=== PATIENT | male | born 1955 ===

== ENCOUNTER 2016-12-19 10:40 | Emergency (ER) | payer MEDICAID, OTHER ==
[2016-12-19 10:48] VITALS: BMI 18.2
[2016-12-19 10:50] VITALS: TEMP 97.8; O2SAT 100
[2016-12-19] MEDS ORDERED: Aspirin 325 mg EC Tablets PO STA (11:12)
[2016-12-19] MEDS ORDERED: Sodium Chloride 0.9% 1,000 ML IV ONE (11:12)
[2016-12-19] MEDS ORDERED: Sodium Chloride 0.9% 1,000 ML ONE (11:16)
--- NOTE | 2016-12-19 11:26 | RAD ---
HISTORY: COMPARISON: No prior. TECHNIQUE: Chest PA and lateral FINDINGS: LINES AND TUBES: None. LUNG AND PLEURA: The lungs are hyperinflated and there is peribronchial thickening with chronic changes in both lungs. No focal consolidation. There is a 4 mm calcified nodule in the left medial lung base. HEART AND MEDIASTINUM: The heart is not enlarged. The hilar and mediastinal contours are within normal limits. SKELETAL STRUCTURES: The bony structures are within normal limits for the patient's age. VISUALIZED UPPER ABDOMEN: Normal. OTHER FINDINGS: None. IMPRESSION: No active pulmonary disease. COPD.
--- NOTE | 2016-12-19 11:26 | C.PDOC ---
History Of Present Illness 61 y/o male with Hx of HTN, Hypercholesterolemia and reported ID in 2012 presents to ED with complaints of palpitations associated with left sided chest pain for 5 days. Patient describes chest pain as "tightness" only having 2 episodes but having frequent palpitations lasting "few seconds". This morning palpitations were more frequent lasting "15 minutes" and took 2 Nitroglycerin pills with no improvement. Patient also reports stabbing chest pain that resolved but palpitations still continued which prompted visit to ED today. Patient did not take other medications and has not been compliant with Aspirin for 1 week. At ED patient has no chest pain or palpitations and denies shortness of breath, dizziness, weakness or any other complaints at this time. Time Seen by Provider: 12/19/16 11:02 Chief Complaint (Nursing): Chest Pain History Per: Patient History/Exam Limitations: no limitations Onset/Duration Of Symptoms: Days Current Symptoms Are (Timing): Still Present Past Medical History Reviewed: Historical Data, Nursing Documentation, Vital Signs Vital Signs: Last Vital Signs Temp 97.8 F 12/19/16 10:45 Pulse 50 L 12/19/16 12:40 Resp 16 12/19/16 12:40 BP 112/69 12/19/16 12:40 Pulse Ox 100 12/19/16 12:41 - Medical History PMH: HTN, Hypercholesterolemia - [facility] Procedures TETANUS TOXOID ADMINIST (12/20/12) Cardiac catherization 2012? Family History: States: No Known Family Hx - Social History Hx Alcohol Use: No Hx Substance Use: No - Immunization History Hx Tetanus Toxoid Vaccination: No Hx Influenza Vaccination: No Hx Pneumococcal Vaccination: No Review Of Systems Constitutional: Negative for: Fever, Chills Cardiovascular: Positive for: Chest Pain, Palpitations Respiratory: Negative for: Shortness of Breath Gastrointestinal: Negative for: Nausea, Vomiting Skin: Negative for: Rash Neurological: Negative for: Weakness, Numbness Physical Exam - Physical Exam Appears: Non-toxic, No Acute Distress Skin: Warm, Dry, No Rash Head: Atraumatic, Normacephalic Eye(s): bilateral: Normal Inspection, EOMI Nose: Normal Oral Mucosa: Moist Neck: Normal ROM Chest: Symmetrical, No Tenderness Cardiovascular: Rhythm Regular (annie), No Murmur Respiratory: Normal Breath Sounds, No Rales, No Rhonchi, No Wheezing Gastrointestinal/Abdominal: Soft, No Tenderness, No Guarding, No Rebound Extremity: Bilateral: Atraumatic, No Pedal Edema, Normal Color And Temperature, Normal ROM Neurological/Psych: Oriented x3, Normal Speech Gait: Steady ED Course And Treatment - Laboratory Results Result Diagrams: 12/19/16 11:28 12/19/16 11:28 ECG: Interpreted By Me, Viewed By Me ECG Rhythm: Sinus Bradycardia Rate From EC (bpm) O2 Sat by Pulse Oximetry: 100 (RA) Pulse Ox Interpretation: Normal Medical Decision Making Medical Decision Making: Impression: Chest palpitations Plan: * EKG * CXR * Labs Progress, Reasses and Dispo: EKG shows SB at 52 bpm CXR shows No active pulmonary disease. COPD. Labs reviewed and unremarkable, no leukocytosis, troponin negative, no electrolyte abnormality, normal lipids Patient re-evaluated and seated comfortably and states he remains unchanged, denies chest pain but states he still feels palpitations intermittently. Given patient's age,history and presentation of atypical chest pain, plan is for observation admission for serial cardiac enzymes and monitoring. I discussed plan for admission with patient and he declined admission. This action is against my medical advice to the patient and the decision was made with informed refusal. The patient was told that admission is necessary and a full explanation of the rationale was given. The risks of leaving were explained to the patient and family at bedside HIPAA compliant, and include, but are not limited to, worsening of known or currently unknown conditions, permanent disability and from undiagnosed or untreated conditions ie ACS. The patient has the capacity to make this informed decision and understands the clinical situation and my explanation of the risks of leaving. The patient voluntarily accepts these risks and a signed AMA form documenting our conversation was obtained.*The patient was given the opportunity to ask questions and reconsider. The patient was encouraged to return to the Emergency Department at any time for further care. Disposition Counseled Patient/Family Regarding: Need For Followup - Disposition Disposition: AGAINST MEDICAL ADVICE Disposition Time: 12:40 Condition: STABLE Additional Instructions: Usted ulloa decidido abandonar el hospital contra un consejo mdico Por favor, siga con nicholas mdico Regrese al servicio de urgencias en cualquier momento si los sntomas persisten o empeoran. Instructions: Against Medical Advice (ED) Forms: [facility] (Czech) Print Language: CZECH - POA Present On Arrival: None - Clinical Impression Clinical Impression: Left against medical advice, Palpitations - Scribe Statement The provider has reviewed the documentation as recorded by the Scribnahid Thomas All medical record entries made by the Ehsanibe were at my direction and personally dictated by me. I have reviewed the chart and agree that the record accurately reflects my personal performance of the history, physical exam, medical decision making, and the department course for this patient. I have also personally directed, reviewed, and agree with the discharge instructions and disposition.
[2016-12-19 11:33] LABS: BASO % 0.9 % (0.0-2.0); EOS # 0.2 K/uL (0.0-0.7); EOS % 4.9 % (0.0-4.0); HEMATOCRIT 38.2 % (35.0-51.0); LYMPH # 0.9 K/uL (1.0-4.3); LYMPH % 23.2 % (20.0-40.0); MEAN CELL VOLUME 96.2 fL (80.0-94.0); MEAN CORPUSCULAR HEMOGLOBIN 32.7 pg (27.0-31.0); MEAN CORPUSCULAR HGB CONC 33.9 g/dL (33.0-37.0); MEAN PLATELET VOLUME 7.2 fL (7.2-11.7); MONO # 0.4 K/uL (0.0-0.8); MONO % 9.9 % (0.0-10.0); RED CELL DISTRIBUTION WIDTH 14.6 % (11.5-14.5)
[2016-12-19 11:41] LABS: INR 1.3
[2016-12-19 11:49] LABS: CHLORIDE 100 mmol/L (98-107)
[2016-12-19 11:50] LABS: POTASSIUM 3.7 mmol/L (3.6-5.2); SODIUM 142 mmol/L (132-148)
[2016-12-19 11:52] LABS: ALB/GLOB RATIO 1.1 (1.0-2.1); AST/SGOT 32 U/L (17-59); BILIRUBIN,TOTAL 0.9 mg/dL (0.2-1.3); BLOOD UREA NITROGEN 17 mg/dL (9-20); CARBON DIOXIDE 32 mmol/L (22-30); CHOLESTEROL 99 mg/dL (0-199); GFR AFRICAN-AMERICAN > 60; GLUCOSE,RANDOM 62 mg/dL (75-110); TOTAL PROTEIN 6.9 g/dL (6.3-8.3)
[2016-12-19 11:53] LABS: ALKALINE PHOSPHATASE 57 U/L (38-126); ALT/SGPT 41 U/L (21-72); CALCIUM 8.9 mg/dl (8.6-10.4)
[2016-12-19 12:21] LABS: URINE BILIRUBIN NEGATIVE (NEGATIVE); URINE BLOOD 1+ (NEGATIVE); URINE COLOR Yellow (YELLOW); URINE GLUCOSE (UA) NORMAL (Normal); URINE KETONE NEGATIVE (NEGATIVE); URINE LEUKOCYTE ESTERASE NEG Leu/uL (Negative); URINE PROTEIN NEGATIVE (NEGATIVE); URINE UROBILINOGEN NORMAL mg/dL (0.2-1.0); WBC URINE 1 /hpf (0-5)
[2016-12-19 12:24] LABS: RBC URINE 4 /hpf (0-3)
[2016-12-19 12:51] VITALS: BP 112/69; PULSE 50; RESP 16
--- NOTE | 2016-12-28 09:28 | CARD ---
APPROVED REPORT EKG Measurement Heart [id number] <Conclusion> Sinus bradycardia Otherwise normal ECG
== END 2016-12-19 12:51 | disposition left against medical advice (07) ==
LOC: C.ER 10:40
DX: R00.2 Palpitations (principal)
CPT/HCPCS: 71020; 80053; 80061; 81001; 83880; 84484; 85025; 85610; 85730; 96360; 99285; J7040